=== PATIENT | male | born 1975 | race Caucasian/White ===

== ENCOUNTER 2018-04-29 09:50 | Emergency (ER) | payer MEDICAID ==
[~2018-04-29] VITALS: Ht 177.8 cm; Wt 82.0 kg
[2018-04-29] MEDS ORDERED: MORPHINE SULFATE 4 MG/ML CPJ (NOT FOR IM USE) IV STA (10:09)
[2018-04-29 11:05] LABS: BASOPHILS % 0.3 % (0.0-2.0); EOSINOPHILS % 1.5 % (0.0-5.0); HEMATOCRIT. 37.9 % (42.0-52.0); HEMOGLOBIN. 12.5 g/dL (14.0-18.0); MEAN CORPUSCULAR HEMOGLOBIN 29.1 pg (28.0-32.0); MEAN CORPUSCULAR VOLUME 88.6 fL (80.0-94.0); MONOCYTES % 11.1 % (2.0-8.0); NEUTROPHILS % 58.1 % (40.0-76.0); PLATELET 222 x1000/uL (130-400); RED BLOOD CELL COUNT 4.28 mill/uL (4.7-6.1); RED CELL DISTRIBUTION WIDTH 14.9 % (11.6-14.6)
[2018-04-29 11:09] LABS: CLARITY URINE CLEAR (CLEAR); COLOR URINE YELLOW (YELLOW); KETONES URINE NEGATIVE (NEGATIVE); LEUKOCYTE ESTERASE URINE NEGATIVE (NEGATIVE); NITRITE URINE NEGATIVE (NEGATIVE); OCCULT BLOOD URINE NEGATIVE (NEGATIVE); PH URINE 6.5 (4.5-8.0); PROTEIN URINE NEGATIVE (NEGATIVE); SPECIFIC GRAVITY URINE 1.017 (1.005-1.030); UROBILINOGEN URINE 0.2 E.U./dL (0.2-1.0)
[2018-04-29 11:11] LABS: CHLORIDE 104 mEq/L (98-107)
[2018-04-29 13:28] VITALS: BP 128/62
== END 2018-04-29 13:35 | disposition home or self-care (01) ==
LOC: ER 10:04
DX: R10.9 Unspecified abdominal pain (principal); K46.9 Unspecified abdominal hernia without obstruction or gangrene; E11.9 Type 2 diabetes mellitus without complications
CPT/HCPCS: 36415; 74176; 80053; 81003; 83690; 85025; 85610; 96374; 99284; J2270

== ENCOUNTER 2018-05-02 23:06 | Inpatient (IN) | payer MEDICAID ==
[~2018-05-02] VITALS: Ht 170.2 cm; Wt 77.1 kg
[2018-05-03] MEDS ORDERED: MORPHINE SULFATE 4 MG/ML CPJ (NOT FOR IM USE) IV STA (03:03)
[2018-05-03] MEDS ORDERED: ONDANSETRON HCL 4MG/2ML INJ IV STA (03:03)
[2018-05-03] MEDS ORDERED: MORPHINE SULFATE 2 MG/ML CPJ (NOT FOR IM USE) IV NR (03:45)
[2018-05-03 03:47] LABS: BASOPHILS % 0.1 % (0.0-2.0); CHLORIDE 106 mEq/L (98-107); EOSINOPHILS % 0.4 % (0.0-5.0); HEMATOCRIT. 35.7 % (42.0-52.0); HEMOGLOBIN. 11.7 g/dL (14.0-18.0); LYMPHOCYTES % 33.2 % (20.0-50.0); MEAN CORPUSCULAR HEMOGLOBIN 28.9 pg (28.0-32.0); MEAN CORPUSCULAR VOLUME 88.2 fL (80.0-94.0); MEAN PLATELET VOLUME 8.2 fl (7.4-10.4); MONOCYTES % 9.8 % (2.0-8.0); NEUTROPHILS % 56.5 % (40.0-76.0); PLATELET 210 x1000/uL (130-400); RED BLOOD CELL COUNT 4.04 mill/uL (4.7-6.1); RED CELL DISTRIBUTION WIDTH 14.3 % (11.6-14.6)
[2018-05-03 05:06] LABS: CLARITY URINE CLEAR (CLEAR); COLOR URINE YELLOW (YELLOW); KETONES URINE NEGATIVE (NEGATIVE); LEUKOCYTE ESTERASE URINE NEGATIVE (NEGATIVE); NITRITE URINE NEGATIVE (NEGATIVE); OCCULT BLOOD URINE NEGATIVE (NEGATIVE); PH URINE 6.5 (4.5-8.0); PROTEIN URINE NEGATIVE (NEGATIVE); UROBILINOGEN URINE 0.2 E.U./dL (0.2-1.0)
[2018-05-03] MEDS ORDERED: DIATR MEGLU/DIATRIZOATE SOLN 120ML ONE (10:10)
[2018-05-03 10:15] VITALS: BP 121/76
[2018-05-03 12:00] VITALS: BP_SYST 119; BP_SYST 121; BP_DIAS 76; BP_DIAS 85
[2018-05-03] MEDS ORDERED: ONDANSETRON HCL 4MG/2ML INJ IV PRN (12:15)
[2018-05-03] MEDS ORDERED: CLONIDINE 0.1MG TABLET PO PRN (12:15)
[2018-05-03] MEDS: DEXT 5%/0.45% NACL 1000ML 1,000 ML IV SCH (12:49)
[2018-05-03] MEDS ORDERED: LEVOFLOXACIN 500MG PREMIX 100 ML IV SCH (13:00)
[2018-05-03] MEDS ORDERED: ENOXAPARIN 40MG/0.4ML SYR SUBCUT SCH (13:00)
[2018-05-03] MEDS: LEVOFLOXACIN 500MG PREMIX 100 ML IV SCH (13:51)
[2018-05-03] MEDS: METRONIDAZOLE 500 MG PREMIX 100 ML IV SCH ×2 (15:25→21:34)
[2018-05-03] MEDS: HYDROMORPHONE HCL/PF 2MG/ML CPJ IV PRN (15:36)
[2018-05-03 16:00] VITALS: BP 116/76
[2018-05-03] MEDS ORDERED: SORBITOL 70% SOLN 30ML PO NR ×2 (16:15→20:00)
[2018-05-03] MEDS ORDERED: HYDR-4001 MT (18:52)
[2018-05-03 20:00] VITALS: BP 102/57
[2018-05-04] VITALS: BP 107/77
[2018-05-04 04:00] VITALS: BP 96/52
[2018-05-04] MEDS: METRONIDAZOLE 500 MG PREMIX 100 ML IV SCH ×2 (05:28→18:16)
[2018-05-04] MEDS: DEXT 5%/0.45% NACL 1000ML 1,000 ML IV SCH ×2 (05:28→14:49)
[2018-05-04 08:00] VITALS: BP 95/62
[2018-05-04 08:58] LABS: BASOPHILS % 0.3 % (0.0-2.0); EOSINOPHILS % 0.5 % (0.0-5.0); HEMATOCRIT. 38.5 % (42.0-52.0); HEMOGLOBIN. 12.8 g/dL (14.0-18.0); LYMPHOCYTES % 24.3 % (20.0-50.0); MEAN PLATELET VOLUME 8.1 fl (7.4-10.4); MONOCYTES % 8.3 % (2.0-8.0); NEUTROPHILS % 66.6 % (40.0-76.0); PLATELET 248 x1000/uL (130-400); RED BLOOD CELL COUNT 4.42 mill/uL (4.7-6.1); RED CELL DISTRIBUTION WIDTH 14.5 % (11.6-14.6)
[2018-05-04 09:05] LABS: INR 1.1; PARTIAL THROMBOPLASTIN TIME 29.9 sec (23.4-31.0); PROTHROMBIN TIME 10.9 sec (9.1-11.1)
[2018-05-04 09:10] LABS: CHLORIDE 110 mEq/L (98-107)
[2018-05-04] MEDS ORDERED: SODIUM CHLORIDE 0.9% 10ML VIAL ONE (10:39)
[2018-05-04] MEDS ORDERED: SIMETHICONE 40 MG/0.6 ML 30ML ONE (10:39)
[2018-05-04 12:00] VITALS: BP 94/58
[2018-05-04] MEDS: HYDROMORPHONE HCL/PF 2MG/ML CPJ IV PRN (13:29)
[2018-05-04] MEDS: LEVOFLOXACIN 500MG PREMIX 100 ML IV SCH (13:29)
[2018-05-04] MEDS ORDERED: MIDAZOLAM HCL 5 MG/5 ML VIAL ONE (15:32)
[2018-05-04] MEDS ORDERED: FENTANYL CITRATE/PF 50MCG/ML 2ML VIAL ONE (15:32)
[2018-05-04] MEDS ORDERED: MIDAZOLAM HCL 5 MG/5 ML VIAL IV PRN (15:39)
[2018-05-04 16:00] VITALS: BP 96/60
[2018-05-04 20:00] VITALS: BP 86/50
[2018-05-05] VITALS: BP 84/46
[2018-05-05] MEDS: METRONIDAZOLE 500 MG PREMIX 100 ML IV SCH ×3 (01:44→17:30)
[2018-05-05 04:00] VITALS: BP 89/44
[2018-05-05] MEDS: DEXT 5%/0.45% NACL 1000ML 1,000 ML IV SCH ×2 (07:56→17:29)
[2018-05-05] MEDS: ACETAMINOPHEN 325MG TABLET PO PRN (10:11)
[2018-05-05 11:02] LABS: BASOPHILS % 0.3 % (0.0-2.0); EOSINOPHILS % 0.3 % (0.0-5.0); HEMATOCRIT. 37.8 % (42.0-52.0); HEMOGLOBIN. 12.6 g/dL (14.0-18.0); LYMPHOCYTES % 35.4 % (20.0-50.0); MEAN CORPUSCULAR HEMOGLOBIN 29.3 pg (28.0-32.0); MEAN CORPUSCULAR VOLUME 87.8 fL (80.0-94.0); MEAN PLATELET VOLUME 8.2 fl (7.4-10.4); MONOCYTES % 7.6 % (2.0-8.0); NEUTROPHILS % 56.4 % (40.0-76.0); PLATELET 227 x1000/uL (130-400); RED CELL DISTRIBUTION WIDTH 14.5 % (11.6-14.6)
[2018-05-05 11:24] LABS: CHLORIDE 109 mEq/L (98-107)
[2018-05-05 12:00] VITALS: BP 90/55
[2018-05-05] MEDS: LEVOFLOXACIN 500MG PREMIX 100 ML IV SCH (12:56)
[2018-05-05 16:00] VITALS: BP 91/58
[2018-05-05 20:00] VITALS: BP 103/63
[2018-05-05] MEDS: HYDROMORPHONE HCL/PF 2MG/ML CPJ IV PRN (21:28)
[2018-05-05 23:44] VITALS: BP 85/50
[2018-05-06] MEDS: ACETAMINOPHEN 325MG TABLET PO PRN (01:06)
[2018-05-06] MEDS: DEXT 5%/0.45% NACL 1000ML 1,000 ML IV SCH (01:17)
[2018-05-06 03:47] VITALS: BP 93/52
[2018-05-06] MEDS: METRONIDAZOLE 500 MG PREMIX 100 ML IV SCH ×3 (05:35→17:29)
[2018-05-06 08:00] VITALS: BP 82/43
[2018-05-06 08:45] VITALS: BP 100/72
[2018-05-06] MEDS: LEVOFLOXACIN 500MG PREMIX 100 ML IV SCH (12:24)
[2018-05-06] MEDS: HYDROMORPHONE HCL/PF 2MG/ML CPJ IV PRN ×2 (12:38→20:34)
[2018-05-06 12:40] VITALS: BP 109/78
[2018-05-06] MEDS ORDERED: METR500T PO (13:27)
[2018-05-06] MEDS ORDERED: LEVO500T2 MT (13:27)
[2018-05-06] MEDS ORDERED: METR500T MT (13:27)
[2018-05-06 16:00] VITALS: BP 96/66
[2018-05-06 20:55] VITALS: BP 110/70
== END 2018-05-06 21:45 | disposition home or self-care (01) | DRG 241 ==
LOC: ER 23:06 → 6EST 05-03 06:59 → EDBEDREQ 05-03 07:14 → ENRESERV 05-03 09:18
PROVIDERS: ADMIT Hospitalist; ATTEND Hospitalist
PROC: 0DBP8ZX Excision of Rectum, Via Natural or Artificial Opening Endoscopic, Diagnostic (ICD-10-PCS; principal; 2018-05-04 15:00)
DX: K29.71 Gastritis, unspecified, with bleeding (principal); N17.0 Acute kidney failure with tubular necrosis; K63.2 Fistula of intestine; N20.1 Calculus of ureter; E44.1 Mild protein-calorie malnutrition; C20 Malignant neoplasm of rectum; E11.9 Type 2 diabetes mellitus without complications; F10.21 Alcohol dependence, in remission; Z68.26 Body mass index [BMI] 26.0-26.9, adult; Z93.3 Colostomy status
CPT/HCPCS: 36415; 71045; 74176; 82378; 88305; 96374; 96375; 99285; A4216; J1170; J1650; J1956; J2250; J2270; J2405; J3010; J3490; Q9963